=== PATIENT | female | born 1965 | race Caucasian/White ===

== ENCOUNTER → 2016-11-03 | Outpatient (CLI) | payer OTHER ==
--- NOTE | 2016-11-03 08:14 | MA ---
Screening Digital Mammogram Clinical Indications: Routine screening. Technique: Standard cephalocaudal and mediolateral oblique projections are obtained. This examinati on is processed by the [employer] computer aided detection system. Comparison: June 2015 Breast density: B; There are scattered fibroglandular densities. Findings: CAD was reviewed. Asymmetry central anterior left breast seen best on the CC view. If real this may be in the upper breast, on the oblique lateral view. The remainder of the left and right serena ast are stable. Impression: Asymmetry left breast. BI-RADS 0.. Additional imaging required left breast Recommendation: Spot compression view and off midline CC views by 5 degrees along with a true latera l view. If persistent, attempt to localize in the orthogonal plane mammographically, and then proceed to ultrasound at the discretion of the interpreting radiologist.. [facility] will send a result letter to the patient. Negative mammography should not preclude additional workup of a clinically suspicious finding. The patient's information is entered into a reminder system with a target due date for her next mammo gram.
== END ==
LOC: BMCIMAGING 07:35
DX: Z12.31 Encounter for screening mammogram for malignant neoplasm of breast (principal)
CPT/HCPCS: G0202

== ENCOUNTER → 2016-11-10 | Outpatient (CLI) | payer OTHER ==
--- NOTE | 2016-11-10 13:32 | MA ---
Diagnostic Digital Left Mammogram graduate History: Asymmetry left breast. Comparison: Screening mammogram November 03, 2016. Technique: A true lateral view, a CC spot film and off midline CC views by 5 degrees. Density: B Findings: An asymmetry does not persist, consistent with overlapping normal parenchymal structures or a cyst that has involuted. The left breast is negative Impression: Negative left breast. BI-RADS 1 Recommendation: Screening mammography in one year.
--- NOTE | 2016-11-10 14:09 | US ---
Left Breast Ultrasound History: Asymmetry left breast seen on screening mammogram Comparison: Screening mammogram November 03 and diagnostic mammogram earlier today Technique: Ultrasound exam with a high frequency linear transducer. Findings: No sonographic abnormality identified in the left breast between the 12 o'clock and 6 o'layne ck position. The mammographic density did not persist on today's diagnostic mammogram Impression: Negative left breast. BI-RADS 1. Negative. Recommendation: Return to screening mammography of both breasts in November 2017 Results and recommendation were communicated to the patient at the time of the examination.
== END ==
LOC: BMCIMAGING 12:46
PROVIDERS: ATTEND Internal Medicine
DX: Z03.89 Encounter for observation for other suspected diseases and conditions ruled out (principal)
CPT/HCPCS: G0206

== ENCOUNTER → 2017-12-12 | Outpatient (CLI) | payer OTHER | LOC: FIMAGING 15:52 | PROVIDERS: ATTEND Internal Medicine | DX: Z12.31 Encounter for screening mammogram for malignant neoplasm of breast (principal) ==

== ENCOUNTER → 2018-11-04 | Outpatient (CLI) | payer OTHER | LOC: BMCIMAGING 10:03 | PROVIDERS: ATTEND Family Medicine | DX: S52.501A Unspecified fracture of the lower end of right radius, initial encounter for closed fracture (principal); W00.0XXA Fall on same level due to ice and snow, initial encounter ==

== ENCOUNTER → 2019-01-16 | Outpatient (CLI) | payer OTHER | LOC: FIMAGING 08:00 | PROVIDERS: ATTEND Internal Medicine | DX: Z12.31 Encounter for screening mammogram for malignant neoplasm of breast (principal); Z80.3 Family history of malignant neoplasm of breast ==